=== PATIENT | male | born 1965 | race Caucasian/White ===

== ENCOUNTER 2018-07-01 14:25 | Day surgery (SDC) | payer OTHER ==
[2018-07-01] MEDS ORDERED: Bupivacaine 0.5% 30 ML SDV ONE (14:54)
[2018-07-01] MEDS ORDERED: Midazolam 1 MG/ML 2 ML SDV ONE (15:02)
[2018-07-01] MEDS ORDERED: Rocuronium 50 MG/5 ML Vial ONE (15:02)
[2018-07-01] MEDS ORDERED: Lidocaine 1% 4 ML ONE (15:02)
[2018-07-01] MEDS ORDERED: Propofol 200 MG/20 ML SDV ONE (15:02)
[2018-07-01] MEDS ORDERED: Ondansetron 4 MG/2 ML SDV ONE (15:02)
[2018-07-01] MEDS ORDERED: fentaNYL 250 MCG/5 ML SDV ONE (15:03)
[2018-07-01] MEDS ORDERED: metroNIDAZOLE/Normal Saline 500 MG in Premix Bag 1 BAG IV SCH (15:15)
[2018-07-01] MEDS ORDERED: cefTRIAXone 2 GM in Sodium Chloride 0.9% 100 ML IV SCH (15:15)
--- NOTE | 2018-07-01 15:15 | PCM.HP ---
H&P History of Present Illness - General Date of Service: 07/01/18 Admit Problem/Dx: acute appendicitis Source of Information: Patient, Old Records, Provider History Limitations: Reports: No Limitations - History of Present Illness Initial Comments - Free Text/Narative: Michael is a 53 y/o male who presents with one day of RLQ abdominal pain. He reports the pain was present in the epigastrium and migrated to the RLQ. He has had nausea and vomiting this morning, and anorexia. He was previously feeling well. He was seen in the walk-in clinic where his laboratory testing revealed a WBC 16.6 with a left shift, and CT scan of the abdomen showed a dilated, fluid- filled appendix. Onset of Symptoms: Reports: Today - Related Data Allergies/Adverse Reactions: Allergies Allergy/AdvReac Type Severity Reaction Status Date / Time No Known Drug Allergies Allergy Other Verified 07/01/18 15:10 gluten AdvReac Diarrhea Verified 06/11/17 12:10 Past Medical History HEENT History: Reports: Allergic Rhinitis Gastrointestinal History: Reports: Celiac Disease - Past Surgical History Head Surgeries/Procedures: Reports: None Social & Family History - Family History Cardiac: Denies: SC Respiratory: Reports: Other (See Below) (Father- lung cancer) GI: Denies: Inflammatory Bowel Disease Neurological: Denies: CVA - Tobacco Use Smoking Status *Q: Never Smoker H&P Review of Systems - Review of Systems: Review Of Systems: See Below General: Reports: Malaise, Fatigue HEENT: Reports: No Symptoms Pulmonary: Reports: No Symptoms Cardiovascular: Reports: No Symptoms Gastrointestinal: Reports: Abdominal Pain, Anorexia. Denies: Black Stool, Bloody Stool Genitourinary: Reports: No Symptoms Musculoskeletal: Reports: Back Pain Skin: Reports: No Symptoms Psychiatric: Reports: No Symptoms Neurological: Reports: No Symptoms Hematologic/Lymphatic: Reports: No Symptoms Immunologic: Reports: No Symptoms Exam - Exam Exam: See Below - Exam General: Alert, Oriented HEENT: Conjunctiva Clear, EOMI Neck: Supple Lungs: Clear to Auscultation, Normal Respiratory Effort Cardiovascular: Regular Rate, Regular Rhythm GI/Abdominal Exam: Soft, Rebound (in RLQ), Tender (in RLQ). No: Distended, Guarding Extremities: Normal Inspection Peripheral Pulses: 2+: Dorsalis Pedis (L), Dorsalis Pedis (R) Skin: Warm, Dry, Intact Neurological: Cranial Nerves Intact Neuro Extensive - Mental Status: Alert, Oriented x3, Normal Mood/Affect *Q Meaningful Use (ADM) - VTE Risk Assess *Q Each Risk Factor Represents 1 Point: Age 41 - 59 years, Obesity ( BMI > 25 kg/m2 ) Total Score 1 Point Risk Factors: 2 - Problem List (1) Acute appendicitis with localized peritonitis SNOMED Code(s): 456139112 ICD Code: K35.3 - ACUTE APPENDICITIS WITH LOCALIZED PERITONITIS Status: Acute Problem List Initiated/Reviewed/Updated: Yes Orders Last 24hrs: Active Orders 24 hr Category Date Time Status cefTRIAXone [Rocephin] 2 gm Med 07/01/18 15:15 Ordered Sodium Chloride 0.9% [Normal Saline] 100 ml IV ONETIME metroNIDAZOLE/Normal Saline [Flagyl 500 MG in NS 100 ML Med 07/01/18 15:15 Ordered ] 500 mg Premix Bag 1 bag IV ONETIME Medication Orders Ceftriaxone Sodium 2 gm/ (Sodium Chloride) 100 mls @ 100 mls/hr IV ONETIME KAREEN Metronidazole 500 mg/ Premix 100 mls @ 100 mls/hr IV ONETIME KAREEN Assessment/Plan Comment:: 53 y/o male with acute appendicitis, confirmed on CT A/P - plan for laparoscopic appendectomy. Discussed risks of bleeding, infection, injury to bowel or surrounding structures. Pt agreed and written consent obtained. - will give ceftriaxone 2g IV x1 and Metronidazole 500mg IV x1 now - NPO - IVF Erin Burton MD General Surgery
--- NOTE | 2018-07-01 15:17 | PCM.PREANE ---
Preanesthetic Assessment - Procedure Proposed Procedure: lap appy - Anesthesia/Transfusion/Family Hx Anesthesia History: Prior Anesthesia Without Reaction Family History of Anesthesia Reaction: No Transfusion History: No Prior Transfusion(s) - Review of Systems General: Chills (this am) Pulmonary: No Symptoms Cardiovascular: No Symptoms Gastrointestinal: Abdominal Pain (1 day) Neurological: No Symptoms Other: Reports: None - Physical Assessment NPO Status Date: 07/01/18 NPO Status Time: 09:30 (water sip) Pulse: 70 O2 Sat by Pulse Oximetry: 97 Respiratory Rate: 16 Blood Pressure: 127/86 Temperature: 98.9 F Height: 5 ft 9 in Weight: 89.4 kg ASA Class: 2E Mental Status: Alert & Oriented x3 Airway Class: Mallampati = 1 Dentition: Reports: Normal Dentition Thyro-Mental Finger Breadths: 2 Mouth Opening Finger Breadths: 3 ROM/Head Extension: Full Lungs: Clear to Auscultation, Normal Respiratory Effort Cardiovascular: Regular Rate, Regular Rhythm - Allergies Allergies/Adverse Reactions: Allergies Allergy/AdvReac Type Severity Reaction Status Date / Time No Known Drug Allergies Allergy Other Verified 07/01/18 15:10 gluten AdvReac Diarrhea Verified 06/11/17 12:10 - Blood Blood Available: No - Acknowledgements Anesthesia Type Planned: General Anesthesia Pt an Appropriate Candidate for the Planned Anesthesia: Yes Alternatives and Risks of Anesthesia Discussed w Pt/Guardian: Yes Pt/Guardian Understands and Agrees with Anesthesia Plan: Yes PreAnesthesia Questionnaire HEENT History: Reports: Other (See Below) (glasses) Cardiovascular History: Reports: None Respiratory History: Reports: None Gastrointestinal History: Reports: GERD - Past Surgical History GI Surgical History: Reports: Colonoscopy, EGD - History Comment History Comment: omeprazole and seasonal allergy pills - SUBSTANCE USE Smoking Status *Q: Former Smoker (few as a teen) Tobacco Use Within Last Twelve Months: No Second Hand Smoke Exposure: No Days Per Week of Alcohol Use: 1 (occasionally) Recreational Drug Use History: No - CURRENT (IN HOUSE) MEDS Current Meds: Current Medications Ceftriaxone Sodium 2 gm/ (Sodium Chloride) 100 mls @ 100 mls/hr IV ONETIME KAREEN Metronidazole 500 mg/ Premix 100 mls @ 100 mls/hr IV ONETIME KAREEN Discontinued Medications Bupivacaine HCl (Marcaine 0.5%) Confirm Administered Dose 30 ml .ROUTE .STK-MED ONE Stop: 07/01/18 14:55 Fentanyl (Sublimaze) Confirm Administered Dose 250 mcg .ROUTE .STK-MED ONE Stop: 07/01/18 15:04 Lidocaine HCl (Xylocaine-Mpf 1%) Confirm Administered Dose 4 mls @ as directed .ROUTE .STK-MED ONE Stop: 07/01/18 15:03 Midazolam HCl (Versed 1 Mg/Ml) Confirm Administered Dose 2 mg .ROUTE .STK-MED ONE Stop: 07/01/18 15:03 Ondansetron HCl (Zofran) Confirm Administered Dose 4 mg .ROUTE .STK-MED ONE Stop: 07/01/18 15:03 Propofol (Diprivan 20 Ml) Confirm Administered Dose 200 mg .ROUTE .STK-MED ONE Stop: 07/01/18 15:03 Rocuronium [place] (Zemuron) Confirm Administered Dose 50 mg .ROUTE .STK-MED ONE Stop: 07/01/18 15:03
[2018-07-01] MEDS: Lactated Ringers 1,000 ML IV SCH ×2 (15:22→17:32)
[2018-07-01] MEDS ORDERED: Sodium Chloride 0.9% 10 ML Syringe FLUSH PRN (15:24)
[2018-07-01] MEDS ORDERED: Lidocaine 1%/Sod Bicarbonate in NS 8.4% 1 ML Syringe IDERM PRN (15:24)
[2018-07-01] MEDS ORDERED: Lidocaine 1% with EPINEPHrine 1:100,000 20 ML MDV ONE ×2 (15:55→16:07)
[2018-07-01] MEDS ORDERED: HYDROmorphone 0.5 MG/0.5 ML SYRINGE IVPUSH PRN (15:56)
[2018-07-01] MEDS ORDERED: Bupivacaine 0.5%/EPINEPHrine 1:200,000 50 ML MDV ONE (15:56)
[2018-07-01] MEDS ORDERED: fentaNYL 100 MCG/2 ML SDV IVPUSH PRN (15:56)
[2018-07-01] MEDS ORDERED: Ondansetron 4 MG/2 ML SDV IVPUSH PRN (15:56)
[2018-07-01] MEDS ORDERED: HYDROmorphone 0.5 MG/0.5 ML Syringe ONE (16:01)
[2018-07-01] MEDS ORDERED: Neostigmine Methylsulfate 1 MG/ML 5 ML Syringe ONE (16:13)
[2018-07-01] MEDS ORDERED: Ketorolac 30 MG/ML SDV ONE (16:22)
[2018-07-01] MEDS ORDERED: Acetaminophen/HYDROcodone 325-5 MG Tab PO PRN (16:42)
--- NOTE | 2018-07-01 16:47 | PCM.OPNOTE ---
- General Post-Op/Procedure Note Date of Surgery/Procedure: 07/01/18 Operative Procedure(s): laparoscopic appendectomy Findings: acute appendicitis, not ruptured Pre Op Diagnosis: acute appendicitis Post-Op Diagnosis: same Anesthesia Technique: General ET Tube Primary Surgeon: Erin Burton Anesthesia Provider: Sylvester Mcdowell Pathology: appendix and mesoappendix Fluid Replacement, Intraop: 600 Output, Urine Amount: 0 EBL in mLs: 5 Drain/Tube Comments:: none Complications: none apparent Condition: Good
[2018-07-01] MEDS ORDERED: Meperidine PF 50 MG/ML Syringe IVPUSH PRN (16:49)
--- NOTE | 2018-07-01 16:50 | PCM.POSTAN ---
POST ANESTHESIA ASSESSMENT - MENTAL STATUS Mental Status: Somnolent - VITAL SIGNS Pulse Rate: 123 SaO2: 95 Resp Rate: 17 Blood Pressure: 153/86 Temperature: 97.7 F - RESPIRATORY Respiratory Status: Respiratory Rate WNL, Airway Patent, O2 Saturation Stable, Supplemental Oxygen - CARDIOVASCULAR CV Status: Pulse Rate WNL, Blood Pressure Stable - GASTROINTESTINAL GI Status: No Symptoms - PAIN Pain Score: 0 - POST OP HYDRATION Hydration Status: Adequate & Stable - OBSERVATIONS Free Text/Narrative:: patient has the shakes
--- NOTE | 2018-07-01 17:01 | PCM.PRNOTE ---
- Free Text/Narrative Note: Operative Report Date of surgery: July 01, 2018 Preoperative diagnosis: acute appendicitis. Postoperative diagnosis: same Surgeon: Dr. Erin Burton Anesthesia: General Estimated blood loss: 5 mL IV fluids: 700mL crystalloid Urine output: 0mL Drains and lines: none Indications for procedure: the patient is a 53-year-old gentleman who presented to the clinic with complaints of one day of abdominal pain. He underwent laboratory workup and CT scan, which revealed a leukocytosis of 16.6 and a dilated fluid-filled appendix. His exam was consistent with appendicitis and these findings. She was given the option of a laparoscopic appendectomy. Risks of infection, bleeding, damage to surrounding structures, and failure of the staple line were explained, and the patient's written consent was obtained. Description of procedure: The patient was taken back to the operating room and placed in supine position on the operating table. SCD boots were in place and functional prior to the start of the procedure. Preoperative antibiotics were administered of ceftriaxone and metronidazole IV. A surgical timeout was performed. The patient had successful induction of general anesthesia and was intubated without difficulty. Pt was then prepped and draped in standard surgical fashion. We began by making a 15 mm incision in the infraumbilical skin and deepened down to level of the fascia which was then grasped and incised sharply. We entered the peritoneum and then placed stay sutures of 0 Vicryl on the fascial edges. A 12 mm Dickey port was then placed into the umbilicus and the balloon was inflated. The abdomen was insufflated to 15 mmHg a 5 mm camera was inserted. There was no evidence of any injury created from entry into the abdomen. A TAP block was then done with 60 mL of 1% lidocaine with epinephrine mixed with 0.5% bupivacaine with epinephrine. We then proceeded to place a 5 mm port under direct visualization in the suprapubic midline and an additional 5mm port in the left lower quadrant. The patient was then positioned in Trendelenburg with right side elevated and we proceeded to mobilize the appendix. The appendix was inflamed with a small amount of fibrinous exudate at the tip. There was no apparent fluid in the abdomen. The appendix was then grasped and with blunt dissection was brought into the surgical field. A window was created between the mesoappendix and appendix. The appendix was then taken with a tissue staple load. The mesoappendix was then taken with a vascular staple load. The specimen was in place in the Endo Catch bag. We then inspected and removed any blood in the area. There was no active bleeding at the end of this case. The abdomen was then desufflated and the umbilical fascia closed with an 0 Vicryl suture,s and the stay sutures were tied, effectively closing the umbilical port site. The skin was then reapproximated at all port sites using a 4-0 Monocryl subcutaneous stitch and covered with Dermabond surgical glue. The patient tolerated the procedure. He was extubated and transported to the PACU in stable condition. All sponge and needle counts were correct. I was present and scrubbed for the entirety of the procedure. Complications: none apparent Disposition: stable Erin Burton MD General Surgery
--- NOTE | 2018-07-01 17:26 | PCM48HPAN ---
Post Anesthesia Note - EVALUATION WITHIN 48HRS OF ANESTHETIC Vital Signs in Normal Range: Yes Patient Participated in Evaluation: Yes Respiratory Function Stable: Yes Airway Patent: Yes Cardiovascular Function Stable: Yes Hydration Status Stable: Yes Pain Control Satisfactory: Yes Nausea and Vomiting Control Satisfactory: Yes Mental Status Recovered: Yes
== END 2018-07-01 19:25 | disposition home or self-care (01) ==
LOC: EDSTATUS 14:39 → JD.SDS 14:45 → JD.MS 17:50 → JD.SDS 19:20
PROVIDERS: ATTEND Surgery
DX: K35.3 Acute appendicitis with localized peritonitis (principal); Z91.018 Allergy to other foods
CPT/HCPCS: 44970; J0696; J1170; J1885; J2250; J2405; J2704; J2710; J3010; J3490; J7030; J7120; 00840; J2001

== ENCOUNTER 2019-12-22 16:56 | Emergency (ER) | payer OTHER ==
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
== END 2019-12-22 19:18 | disposition home or self-care (01) ==
LOC: JD.ED 16:56 → SUPCPDRO 16:56 → JD.ED 19:18
DX: H81.10 Benign paroxysmal vertigo, unspecified ear (principal); M62.838 Other muscle spasm; Z91.018 Allergy to other foods; Z79.899 Other long term (current) drug therapy
CPT/HCPCS: 99283; A9270-GY